=== PATIENT | male | born 1945 | race Caucasian/White ===

== ENCOUNTER 2017-10-10 10:42 | Emergency (ER) | payer OTHER, BC ==
[~2017-10-10] VITALS: Ht 182.9 cm; Wt 91.9 kg
[2017-10-10 11:21] LABS: BASOPHIL (%) 1.3 % (0-1); BASOPHIL COUNT 0.1 K/uL (0-0.1); EOSINOPHIL (%) 33.8 % (0-5); EOSINOPHIL COUNT 2.4 K/uL (0-0.3); HEMATOCRIT 37.1 % (38.0-50.0); HEMOGLOBIN 12.7 G/DL (12.5-16.6); IMMATURE GRANULOCYTE (%) 0.3 % (0.0-0.7); LYMPHOCYTE (%) 22.1 % (15-42); LYMPHOCYTE COUNT 1.6 K/uL (1.0-2.8); MCH 36.5 PG (29.0-34.0); MCHC 34.2 G/DL (30.0-36.0); MCV 106.6 FL (86-99); MONOCYTE (%) 15.9 % (3-12); MONOCYTE COUNT 1.1 K/uL (0-0.8); NEUTROPHIL (%) 26.6 % (45-76); NEUTROPHIL COUNT 1.9 K/uL (1.8-6.4); PLATELET COUNT 99 K/uL (156-360); RBC DIS.WIDTH-CV 13.6 % (11.8-14.6); RBC DIS.WIDTH-SD 53.7 % (39-53); RED BLOOD COUNT 3.48 M/uL (4.00-5.50); WHITE BLOOD COUNT 7.1 K/uL (4.1-10.2)
[2017-10-10 11:31] LABS: ALBUMIN 4.2 g/dL (3.2-4.8); CHLORIDE 104 mEq/L (99-109); SODIUM 136 mEq/L (136-147)
[2017-10-10 11:32] LABS: MAGNESIUM 2.3 mg/dL (1.3-2.7)
[2017-10-10 11:34] LABS: GLUCOSE 87 mg/dL (70-99); TOTAL PROTEIN 5.9 g/dL (6.4-8.3)
[2017-10-10 11:36] LABS: TOTAL BILIRUBIN 0.5 mg/dL (0.0-1.0)
[2017-10-10 11:37] LABS: ALKALINE PHOSPHATASE 58 IU/L (3-129)
[2017-10-10 11:38] LABS: CREATININE 0.9 mg/dL (0.6-1.3); GFR ESTIMATE (CALCULATED) > 59 mL/min/ (58.99-99999)
[2017-10-10 11:39] LABS: AST (GOT) 16 IU/L (2-34); UREA NITROGEN (BUN) 21 mg/dL (9-23)
[2017-10-10 11:41] LABS: ALT (GPT) 18 IU/L (3-49)
[2017-10-10 12:21] LABS: APPEARANCE CLEAR ((CLEAR)); BILIRUBIN NEGATIVE; BLOOD NEGATIVE; COLOR YELLOW ((YELLOW)); GLUCOSE (STRIP) NEGATIVE; KETONES NEGATIVE; LEUKOCYTES TRACE; NITRITE NEGATIVE; PROTEIN (STRIP) NEGATIVE; SPECIFIC GRAVITY 1.009 (1.000-1.030); UROBILINOGEN 0.2 MG/DL (0.2-1.0)
[2017-10-10 12:23] LABS: BACTERIA NONE SEEN /HPF; EPITHELIAL CELLS NONE SEEN /HPF; MUCUS TRACE /LPF; RED BLOOD CELLS 0-5 /HPF (0-5); UCUL ADDED? NO; WHITE BLOOD CELLS 0-5 /HPF (0-5)
[2017-10-10] MEDS ORDERED: ZANTAC150 MG PO (13:07)
[2017-10-10 13:29] VITALS: BP 108/72
== END 2017-10-10 13:32 | disposition home or self-care (01) ==
LOC: EME 10:42
PROVIDERS: Emergency Medicine
DX: R10.11 Right upper quadrant pain (principal); M54.9 Dorsalgia, unspecified; R61 Generalized hyperhidrosis; R53.83 Other fatigue; F17.200 Nicotine dependence, unspecified, uncomplicated
CPT/HCPCS: 76705; 80053; 81003; 83735; 85025; 99281; 99284